=== PATIENT | female | born 1995 | race Two or more races ===

== ENCOUNTER 2019-09-11 07:14 | Emergency (ER) | payer MEDICAID ==
[~2019-09-11] VITALS: Ht 162.6 cm; Wt 93.0 kg
--- NOTE | 2019-09-11 07:28 | NUR ---
PT BIB FRIEND C/O DIZZINESS, WORSE WHEN SHE STANDS UP, X3 DAYS. DENIES SYNCOPE. DENIES FEVER/CHILLS. A/OX4. NO NEURO DEFICITS NOTED. NAD NOTED. RESP EVEN UNLABORED. SKIN WARM DRY.
[2019-09-11 07:42] LABS: APPEARANCE,URINE Clear (CLEAR); BILIRUBIN,URINE Negative (NEGATIVE); BLOOD, URINE Negative Ery/uL (NEGATIVE); COLOR,URINE Yellow (YELLOW); KETONES,URINE Trace (NEGATIVE); LEUKOCYTE ESTERASE ,URINE Negative (NEGATIVE); NITRITE, URINE Negative (NEGATIVE); PROTEIN,URINE Negative (NEGATIVE); UGLUCOSE Negative (NEGATIVE); UROBILINOGEN,URINE 0.2 EU/dL (0.2)
--- NOTE | 2019-09-11 07:42 | NUR ---
INTERNIST MEDICAL DOCTOR MD AT BEDSIDE FOR BLOOD DRAW.
--- NOTE | 2019-09-11 07:42 | NUR ---
EMT AT BEDSIDE FOR EKG
[2019-09-11] MEDS ORDERED: LORA10TA7 PO (07:45)
[2019-09-11 08:10] LABS: BASOPHILS % (AUTO) 0.3 % (0.0-2.0); HEMATOCRIT 40 % (33-45); HEMOGLOBIN 13.4 g/dL (11.5-14.8); LYMPHOCYTES # (AUTO) 2.1 /CMM (0.8-4.8); LYMPHOCYTES % (AUTO) 27.1 % (20.0-44.0); MEAN CORPUSCULAR HGB CONC 34 g/dl (31.0-36.0); MEAN CORPUSCULAR VOLUME 91 fL (82-100); MONOCYTES # (AUTO) 0.7 /CMM (0.1-1.30); MONOCYTES % (AUTO) 8.9 % (2.0-12.0); NEUTROPHILS # (AUTO) 4.7 /CMM (1.8-8.9); NEUTROPHILS % (AUTO) 61.7 % (43.0-81.0); PLATELET COUNT (AUTO) 253 /CMM (150-450); RED BLOOD CELL COUNT(AUTO) 4.39 MIL/uL (4.0-5.2); WHITE BLOOD COUNT (AUTO) 7.7 K/uL (4.3-11.0)
[2019-09-11 08:26] LABS: CALCIUM, SERUM 9.4 mg/dL (8.5-10.1); CREATININE 0.8 mg/dL (0.6-1.3); POTASSIUM 3.6 mmol/L (3.5-5.1)
[2019-09-11 08:29] LABS: BACTERIA,URINE Few /HPF (None Seen); RBC,URINE 0-2 /HPF (0-2); SQUAMOUS EPITHELIAL CELL,UR Few /HPF (None Seen)
[2019-09-11 08:32] LABS: ALBUMIN 4.1 g/dL (3.4-5.0); BILIRUBIN,DIRECT 0.1 mg/dL (0.0-0.2); BILIRUBIN,TOTAL 0.3 mg/dL (0.2-1.0); TOTAL PROTEIN, SERUM 7.8 g/dL (6.4-8.2)
[2019-09-11 08:48] VITALS: BP 130/77
--- NOTE | 2019-09-11 08:48 | NUR ---
Patient discharged to home in stable condition. Written and verbal after care instructions given. Patient verbalizes understanding of instruction. Ambulatory steady gait.
== END 2019-09-11 08:48 | disposition home or self-care (01) ==
LOC: ER 07:16
DX: R53.1 Weakness (principal); R42 Dizziness and giddiness; Z79.899 Other long term (current) drug therapy
CPT/HCPCS: 36415; 71045-TC; 80048-TC; 80076-TC; 81000-TC; 83690-TC; 84703-TC; 85025-TC; 87086-TC; G0480